=== PATIENT | female | born 1955 | race Caucasian/White ===

== ENCOUNTER → 2023-11-21 08:53 | Outpatient (CLI) | payer MEDICARE, SELFPAY ==
[2023-11-21 19:21] LABS: Add Manual Diff / Slide Review NO; Basophils Absolute Auto 100 /uL (0-100); Basophils Percent Auto 0.7 % (0-2); Eosinophils Absolute Auto 100 /uL (0-450); Hematocrit 36.9 % (36-46); Lymphocytes Absolute Auto 2300 /uL (1100-4500); Lymphocytes Percent Auto 32.8 % (25-40); Mean Corpuscular HGB Conc 32.4 % (30-36); Mean Corpuscular Volume 83.2 fL (80-100); Monocytes Absolute Auto 600 /uL (0-900); Monocytes Percent Auto 8.1 % (3-14); Neutrophils Absolute Auto 3900 /uL (1500-7000); Neutrophils Percent Auto 56.4 % (50-75); Platelet Count 270 X10^3/uL (150-400); Red Blood Cell Count 4.43 X10^6/uL (4.0-5.2); Red Cell Distribution Width 14.8 % (11.6-14.8)
[2023-11-21 23:10] LABS: TSH w/ Reflex to FT4 5.02 uIU/mL (0.47-4.68)
[2023-11-21 23:43] LABS: Free T4, Direct Thyroxine 1.21 ng/dL (0.78-2.19)
[2023-11-22 00:12] LABS: Alanine Aminotransferase 18 IU/L (<35); Albumin Globulin Ratio 1.2 (1.0-2.8); Alkaline Phosphatase 70 U/L (38-126); Aspartate Aminotransferase 25 IU/L (14-36); Bilirubin Total 0.5 mg/dL (0.2-1.3); Blood Urea Nitrogen 16 mg/dL (7-17); Calcium 9.5 mg/dL (8.4-10.2); Carbon Dioxide 31 mmol/L (22-32); Chloride 102 mmol/L (98-107); Cholesterol 188 mg/dL (140-199); Estimated Glomerular Filt Rate > 60 mL/min (>60); Globulin 3.3 g/dL (1.7-4.1); Glucose 103 mg/dL (80-110); HDL Cholesterol 61 mg/dL (40-60); HEMOLYSIS < 15 (0-50); LDL Cholesterol Calculated 109 mg/dL (<100); Potassium 4.4 mmol/L (3.4-5.1); Sodium 139 mmol/L (137-145); Total Protein 7.3 g/dL (6.3-8.2); Triglycerides 91 mg/dL (35-150)
[2023-11-22 00:29] LABS: Vitamin D 25 Hydroxy (D3) 64.6 ng/mL (30.0-100.0)
== END ==
PROVIDERS: PCP Physician Assistant Medical; Visit Provider Physician Assistant Medical
DX: Z12.11 Encounter for screening for malignant neoplasm of colon (principal); Z13.6 Encounter for screening for cardiovascular disorders; M85.80 Other specified disorders of bone density and structure, unspecified site; R56.9 Unspecified convulsions; C50.911 Malignant neoplasm of unspecified site of right female breast; R79.89 Other specified abnormal findings of blood chemistry
CPT/HCPCS: 80053; 80061; 82306; 84439; 84443; 85025

== ENCOUNTER → 2024-01-22 12:01 | Outpatient (CLI) | payer MEDICARE, SELFPAY | PROVIDERS: PCP Physician Assistant Medical; Visit Provider Physician Assistant Medical | DX: Z12.11 Encounter for screening for malignant neoplasm of colon (principal); Z13.6 Encounter for screening for cardiovascular disorders; M85.80 Other specified disorders of bone density and structure, unspecified site; R56.9 Unspecified convulsions; C50.911 Malignant neoplasm of unspecified site of right female breast; R79.89 Other specified abnormal findings of blood chemistry | CPT/HCPCS: 82274 ==

== ENCOUNTER → 2024-02-10 11:52 | Outpatient (CLI) | payer MEDICARE, SELFPAY ==
[2024-02-10 20:06] LABS: Alanine Aminotransferase 20 IU/L (<35); Albumin 3.9 g/dL (3.5-5.0); Albumin Globulin Ratio 1.2 (1.0-2.8); Alkaline Phosphatase 69 U/L (38-126); Aspartate Aminotransferase 27 IU/L (14-36); Bilirubin Total 0.4 mg/dL (0.2-1.3); Blood Urea Nitrogen 17 mg/dL (7-17); Calcium 9.3 mg/dL (8.4-10.2); Carbon Dioxide 33 mmol/L (22-32); Chloride 102 mmol/L (98-107); Estimated Glomerular Filt Rate > 60 mL/min (>60); Globulin 3.3 g/dL (1.7-4.1); Glucose 97 mg/dL (80-110); HEMOLYSIS < 15 (0-50); Potassium 4.6 mmol/L (3.4-5.1); Sodium 137 mmol/L (137-145); Total Protein 7.2 g/dL (6.3-8.2)
[2024-02-10 20:38] LABS: TSH w/ Reflex to FT4 1.82 uIU/mL (0.47-4.68)
== END ==
PROVIDERS: PCP Physician Assistant Medical; Visit Provider Physician Assistant Medical
DX: I10 Essential (primary) hypertension (principal); E03.9 Hypothyroidism, unspecified
CPT/HCPCS: 80053; 84443

== ENCOUNTER → 2024-03-02 11:48 | Outpatient (CLI) | payer MEDICARE, SELFPAY ==
--- NOTE | 2024-03-02 11:49 | DI.MG.S_ITS ---
UNILATERAL LEFT DIGITAL SCREENING MAMMOGRAM 3D/2D WITH CAD POST MASTECTOMY: 03/02/2024 CLINICAL: Routine screening. Personal history of right breast cancer. No prior exams were available for comparison. The left breast is heterogeneously dense, which may obscure small masses (category c / 51-75% glandular tissue). Current study was also evaluated with a Computer Aided Detection (CAD) system. There are benign calcifications in the left breast. There also are benign post operative findings and biopsy clip in the left breast. No significant masses, calcifications, or other findings are seen in the breast. IMPRESSION: BENIGN There is no mammographic evidence of malignancy. A 1 year screening mammogram is recommended. This exam was interpreted at Station ID: [id number]. NOTE: For mammograms, a report in lay terms will be sent to the patient. Approximately 15% of breast malignancies will not be visualized mammographically. In the management of a palpable breast mass, a negative mammogram must not discourage biopsy of a clinically suspicious lesion. Electronically Signed By: Iam gabriel/diego:03/13/2024 14:15:55 letter sent: Normal Exam ACR BI-RADS Category 2: Benign Finding(s) 3342F
== END ==
PROVIDERS: PCP Physician Assistant Medical; Referring Provider Physician Assistant Medical; Visit Provider Physician Assistant Medical
DX: Z12.31 Encounter for screening mammogram for malignant neoplasm of breast (principal); Z85.3 Personal history of malignant neoplasm of breast; R92.332 Mammographic heterogeneous density, left breast
CPT/HCPCS: 77063; 77067

== ENCOUNTER → 2024-03-02 11:50 | Outpatient (CLI) | payer MEDICARE, SELFPAY ==
--- NOTE | 2024-03-02 11:51 | DI.ECHO.S_ITS ---
[facility] : : [id number] : [place] : : [id number] : : Phone: [phone] Echocardiogram Report + + :Name: RENÉE GOMEZ Study Date: 03/02/2024 Height: 67 in : :[facility] ReadingLocation: Weight: 180 lb : : Gender: Female BSA: 1.9 m2 : :: 1955 Age: 69 yrs BP: 156/76 mmHg: :Reason For Study: CARDIAC MURMUR : :Ordering Physician: SWETHA, : :MICHEL Performed By: Ruddy Mar : :Referring: MICHEL POSADA : + + Interpretation Summary Normal sinus rhythm. Normal LV size and wall thickness; normal wall motion and LV systolic function. EF is 60-65%. Stage I diastolic dysfunction. Aortic sclerosis with mild associated stenosis. There is a pseudoraphe connecting left and non-coronary leaflets. Peak velocity is 2.3 m/sec and mean gradient is 12 mm Hg. Otherwise no significant valvular abnormalities. Normal chamber sizes. No prior study available for comparison. Procedure: A two-dimensional transthoracic echocardiogram with color flow and Doppler was performed. The study quality was technically adequate. There is no prior echocardiogram noted for this patient. The patient was in sinus rhythm with heart rates between 69-81 bpm during the exam. Left Ventricle: The left ventricle is normal in size and wall thickness. The ejection fraction is estimated to be 60-65%. Right Ventricle: The right ventricle is normal size. Right ventricular systolic function is mildly reduced. Atria: The left atrial size is normal. Right atrial size is normal. The interatrial septum grossly appears intact with no obvious evidence for an atrial septal defect. Mitral Valve: The mitral valve is normal in structure and function. There is no mitral valve stenosis. There is trace mitral regurgitation. Aortic Valve: The aortic valve is trileaflet. The aortic valve is mildly calcified. There is mild aortic stenosis. The peak aortic velocity is 2.28 m/sec. The aortic valve mean gradient is 12.2 mmHg. There is trace aortic regurgitation. Tricuspid Valve: The tricuspid valve is normal. There is no tricuspid stenosis. There is mild tricuspid regurgitation. The right ventricular systolic pressure is estimated to be at least 31.6 mmHg based on an estimated right atrial pressure of 8 mm Hg. Pulmonic Valve: The pulmonic valve is not well visualized. There is no pulmonic valvular stenosis. There is a trace or physiologic amount of pulmonic regurgitation. Great Vessels: The aortic root is normal size. The dimensions of the ascending aorta are normal. The IVC is dilated (diameter is greater than 2.1 cm) yet it collapses greater than 50% with a sniff. This suggests a right atrial pressure of 8 mm Hg. Pericardium/ Pleura There is no pericardial effusion. There is no pleural effusion. MMode/2D Measurements & Calculations LVIDd: 5.0 cm LVOT diam: 1.8 cm LVIDs: 3.4 cm Ao root diam: 3.1 cm FS: 33.1 % asc Aorta Diam: 2.9 cm IVSd: 0.97 cm LVPWd: 0.87 cm LV stafford. diameter/BSA (cm/m^2): 2.6 LV sys. diameter/BSA (cm/m^2): 1.7 LA A2 area: 18.3 cm2 RA long axis: 4.4 cm LA A4 area: 16.8 cm2 RA area: 12.6 cm2 LA length (vol): 4.9 cm RA vol: 30.5 ml LA vol: 53.3 ml RA : 15.8 ml/m2 LA vol index: 27.5 ml/m2 IVC diam: 2.2 cm RVD1 (basal): 3.2 cm RVD2 (mid): 2.6 cm TAPSE: 1.6 cm Doppler Measurements & Calculations Ao V2 max: 228.4 cm/sec LVOT [place]: 134.7 cm/sec Ao V2 mean: 165.4 cm/sec LV V1 max P.3 mmHg Ao max P.9 mmHg LV V1 VTI: 32.0 cm Ao mean P.2 mmHg RICHARD(I,D): 1.7 cm2 Ao V2 VTI: 51.0 cm RICHARD(V,D): 1.5 cm2 sev ratio: 0.63 RICHARD indexed to BSA (cm^2/m^2): 0.85 MV E max lake: 66.1 cm/sec TR max lake: 242.7 cm/sec MV A max lake: 105.2 cm/sec TR max P.6 mmHg MV E/A: 0.63 PA V2 max: 122.2 cm/sec Med [place]: 4.8 cm/sec PA V2 mean: 86.6 cm/sec E/E' med: 13.8 PA mean P.3 mmHg Lat [place]: 8.2 cm/sec PA pr(Accel): 36.2 mmHg E/E' lat: 8.1 E/e' average: 10.9 MV dec time: 0.32 sec SV(LVOT): 84.2 ml Electronically signed by: Ingrid Lozano M.D. on Reading Physician:03/03/2024 07:50 AM
== END ==
PROVIDERS: PCP Physician Assistant Medical; Referring Provider Internal Medicine Cardiovascular Disease; Visit Provider Internal Medicine Cardiovascular Disease
DX: I08.2 Rheumatic disorders of both aortic and tricuspid valves (principal); R01.1 Cardiac murmur, unspecified
CPT/HCPCS: 93306

== ENCOUNTER → 2024-06-29 12:53 | Outpatient (CLI) | payer MEDICARE, SELFPAY ==
--- NOTE | 2024-06-29 12:57 | DI.RAD.S_ITS ---
PROCEDURE: XR DEXA AXIAL SKELETON INDICATIONS: Other specified disorders of bone density and structure, uns COMPARISON: None. FINDINGS: Lumbar Spine: Bone mineral density 1.007 g/cm2, T score -0 7. Left Hip: Bone mineral density 0.875 g/cm2, T score -0.5. Left Femoral Neck: Bone mineral density 0.728 g/cm2, T score -1.1. Right Hip: Bone mineral density 0.873 g/cm2, T score -0.6,. Right Femoral Neck: Bone mineral density 0.751 g/cm2, T score -0.9 Fracture Risk Calculation (when applicable): 10-year fracture risk of a major osteoporotic fracture 8.8 percent and of a hip fracture 0.9 percent. (T score greater or equal to -1.0 to: NORMAL) (T score from -1.1 to -2.4: OSTEOPENIA) (T score less than or equal to -2.5: OSTEOPOROSIS) IMPRESSION: Minimal osteopenia in the left femoral neck. Follow-up guidelines as follows: Osteoporosis: Consider a repeat DEXA and Vertebral Fracture Assessment (VFA) exam in 2 years or sooner if medically necessary, to reassess this patient's status. Osteopenia: Consider a repeat DEXA in 2-3 years to reassess this patient's status, or if there is a new clinical indication. Normal: Consider a repeat DEXA in 5 years or sooner, or if there is a new clinical indication. All treatment decisions require clinical judgment and consideration of individual patient factors, including patient preferences, comorbidities, previous drug use, risk factors not captured in the FRAX model (e.g., frailty, falls, vitamin D deficiency, increased bone turnover, interval significant decline in bone density ) and possible under- or over-estimation of fracture risk by FRAX. In addition, the NOF Guide recommends that FDA-approved medical therapies be considered in postmenopausal women and men age >= 50 years with a: * Hip or vertebral (clinical or morphometric) fracture * T-score of <=-2.5 at the spine or hip * Ten-year fracture probability by FRAX of >= 3% for hip fracture or >=20% for major osteoporotic fracture. People with diagnosed cases of osteoporosis or at high risk for fracture should have regular bone mineral density tests. For patients eligible for Medicare, routine testing is allowed once every 2 years. The testing frequency can be increased to one year for patients who have rapidly progressing disease, those who are receiving or discontinuing medical therapy to restore bone mass, or have additional risk factors. Dictated by: Leticia Cameron M.D. on 06/29/2024 at 17:39 Approved by: Leticia Cameron M.D. on 06/29/2024 at 17:40
== END ==
PROVIDERS: PCP Physician Assistant Medical; Referring Provider Physician Assistant Medical; Visit Provider Physician Assistant Medical
DX: M85.852 Other specified disorders of bone density and structure, left thigh (principal)
CPT/HCPCS: 77080

== ENCOUNTER → 2024-07-28 09:17 | Outpatient (CLI) | payer MEDICARE, SELFPAY ==
[2024-07-28 19:36] LABS: Hematocrit 38.5 % (36-46); Hemoglobin 12.7 g/dL (12.0-16.0); Mean Corpuscular HGB Conc 33.1 % (30-36); Mean Corpuscular Hemoglobin 27.8 PG (26-34); Mean Corpuscular Volume 83.8 fL (80-100); Platelet Count 252 X10^3/uL (150-400); Red Blood Cell Count 4.59 X10^6/uL (4.0-5.2); Red Cell Distribution Width 14.3 % (11.6-14.8); White Blood Cell Count 6.2 X10^3/uL (4.5-11.0)
[2024-07-28 20:06] LABS: Alanine Aminotransferase 27 IU/L (<35); Albumin 4.2 g/dL (3.5-5.0); Albumin Globulin Ratio 1.2 (1.0-2.8); Alkaline Phosphatase 77 U/L (38-126); Aspartate Aminotransferase 31 IU/L (14-36); BUN Creatinine Ratio 21.1 (6-22); Bilirubin Total 0.5 mg/dL (0.2-1.3); Blood Urea Nitrogen 15 mg/dL (7-17); Calcium 9.6 mg/dL (8.4-10.2); Carbon Dioxide 32 mmol/L (22-32); Chloride 99 mmol/L (98-107); Cholesterol 207 mg/dL (140-199); Estimated Glomerular Filt Rate > 60 mL/min (>60); Globulin 3.4 g/dL (1.7-4.1); Glucose 104 mg/dL (80-110); HDL Cholesterol 68 mg/dL (40-60); HEMOLYSIS < 15 (0-50); LDL Cholesterol Calculated 111 mg/dL (<100); Potassium 4.3 mmol/L (3.4-5.1); Sodium 137 mmol/L (137-145); Total Protein 7.6 g/dL (6.3-8.2); Triglycerides 138 mg/dL (35-150)
[2024-07-28 20:17] LABS: Vitamin D 25 Hydroxy (D3) 44.8 ng/mL (30.0-100.0)
[2024-07-28 21:11] LABS: Free T4, Direct Thyroxine 1.24 ng/dL (0.78-2.19)
== END ==
PROVIDERS: PCP Physician Assistant Medical; Referring Provider Physician Assistant Medical; Visit Provider Physician Assistant Medical
DX: L03.211 Cellulitis of face (principal); I10 Essential (primary) hypertension; E03.9 Hypothyroidism, unspecified; R79.89 Other specified abnormal findings of blood chemistry
CPT/HCPCS: 80053; 80061; 82306; 84439; 84443; 85027

== ENCOUNTER → 2024-09-25 12:09 | Outpatient (CLI) | payer MEDICARE, SELFPAY ==
--- NOTE | 2024-09-25 12:11 | DI.MRI.S_ITS ---
BREAST MRI OF BOTH BREASTS: 09/25/2024 CLINICAL: Personal history of right breast cancer. PROCEDURE: MR BREAST BI WO/W CON INDICATIONS: screening TECHNIQUE: The patient was placed prone in a dedicated breast imaging coil. Precontrast axial STIR and 3D FLASH without fat saturation sequences were obtained. Both before and after bolus injection of contrast, sequential 1-minute axial 3D FLASH with fat saturation sequences for 3 time points, with subtraction images and maximum intensity projections (MIP's) generated. Delayed sagittal FLASH images with fat saturation were also obtained. Computer-aided detection, including computer algorithm analysis of MRI image data for lesion detection and characterization, pharmacokinetic analysis, with further physician review for interpretation, was performed. COMPARISON: Left breast screening mammogram 03/02/2024. FINDINGS: Image quality: Diagnostic. There is scattered amount of fibroglandular tissue in the left breast. There is mild background parenchymal enhancement. Right breast: There are postsurgical changes from right breast mastectomy with implant reconstruction. There is no suspicious enhancement or lymphadenopathy. Left breast: There is no suspicious enhancement or lymphadenopathy. IMPRESSION: BENIGN Right breast status post mastectomy with implant reconstruction. No MRI evidence of malignancy in the right breast. Recommend clinical follow-up. No MRI evidence of malignancy in the left breast. Recommend continued routine annual screening. This exam was interpreted at Station ID: [id number]. Electronically Signed By: Brittany Belol M.D., Ph.D. eb/:10/01/2024 00:46:28 letter sent: Normal Exam ACR BI-RADS Category 2: Benign
== END ==
LOC: MRI 12:10
PROVIDERS: PCP Physician Assistant Medical; Referring Provider Physician Assistant Medical; Visit Provider Physician Assistant Medical
DX: C50.911 Malignant neoplasm of unspecified site of right female breast (principal); Z98.82 Breast implant status; Z90.11 Acquired absence of right breast and nipple
CPT/HCPCS: 77049; A9579

== ENCOUNTER → 2025-01-05 09:04 | Outpatient (CLI) | payer MEDICARE, SELFPAY ==
[2025-01-05 19:06] LABS: Hematocrit 36.8 % (36-46); Hemoglobin 12.1 g/dL (12.0-16.0); Mean Corpuscular HGB Conc 32.9 % (30-36); Mean Corpuscular Hemoglobin 27.4 PG (26-34); Mean Corpuscular Volume 83.3 fL (80-100); Platelet Count 233 X10^3/uL (150-400); Red Blood Cell Count 4.42 X10^6/uL (4.0-5.2); Red Cell Distribution Width 14.9 % (11.6-14.8); White Blood Cell Count 6.4 X10^3/uL (4.5-11.0)
[2025-01-05 19:15] LABS: Alanine Aminotransferase 26 IU/L (<35); Albumin 4.2 g/dL (3.5-5.0); Albumin Globulin Ratio 1.4 (1.0-2.8); Alkaline Phosphatase 76 U/L (38-126); Aspartate Aminotransferase 33 IU/L (14-36); BUN Creatinine Ratio 19.7 (6-22); Bilirubin Total 0.5 mg/dL (0.2-1.3); Blood Urea Nitrogen 14 mg/dL (7-17); Calcium 9.3 mg/dL (8.4-10.2); Carbon Dioxide 30 mmol/L (22-32); Chloride 100 mmol/L (98-107); Cholesterol 180 mg/dL (140-199); Estimated Glomerular Filt Rate > 60 mL/min (>60); Globulin 2.9 g/dL (1.7-4.1); Glucose 101 mg/dL (70-99); HDL Cholesterol 59 mg/dL (40-60); HEMOLYSIS < 15 (0-50); LDL Cholesterol Calculated 104 mg/dL (<100); Potassium 4.6 mmol/L (3.4-5.1); Sodium 138 mmol/L (137-145); Total Protein 7.1 g/dL (6.3-8.2); Triglycerides 85 mg/dL (35-150)
== END ==
PROVIDERS: PCP Physician Assistant Medical; Visit Provider Physician Assistant Medical
DX: E78.00 Pure hypercholesterolemia, unspecified (principal); I10 Essential (primary) hypertension; E03.9 Hypothyroidism, unspecified
CPT/HCPCS: 80053; 80061; 85027

== ENCOUNTER → 2025-01-28 11:54 | Outpatient (CLI) | payer MEDICARE, SELFPAY ==
[2025-01-28 19:29] LABS: Free T3, Triiodothyronine Free 4.04 pg/mL (2.77-5.27); Hemoglobin A1C% w Est Avg Glu 5.6 % (4.0-6.0)
== END ==
PROVIDERS: PCP Physician Assistant Medical; Visit Provider Physician Assistant Medical
DX: E03.9 Hypothyroidism, unspecified (principal); R73.9 Hyperglycemia, unspecified
CPT/HCPCS: 83036; 84443; 84481

== ENCOUNTER → 2025-06-29 08:52 | Outpatient (CLI) | payer MEDICARE, SELFPAY ==
[2025-06-29 19:00] LABS: Add Manual Diff / Slide Review NO; Hematocrit 36.9 % (36-46); Hemoglobin 12.3 g/dL (12.0-16.0); Lymphocytes Absolute Auto 1900 /uL (1100-4500); Mean Corpuscular HGB Conc 33.4 % (30-36); Mean Corpuscular Hemoglobin 27.9 PG (26-34); Mean Corpuscular Volume 83.6 fL (80-100); Platelet Count 211 X10^3/uL (150-400)
[2025-06-29 19:06] LABS: Alanine Aminotransferase 25 IU/L (<35); Albumin 4.1 g/dL (3.5-5.0); Albumin Globulin Ratio 1.4 (1.0-2.8); Alkaline Phosphatase 76 U/L (38-126); Blood Urea Nitrogen 17 mg/dL (7-17); Calcium 9.3 mg/dL (8.4-10.2); Carbon Dioxide 29 mmol/L (22-32); Chloride 99 mmol/L (98-107); Estimated Glomerular Filt Rate > 60 mL/min (>60); Globulin 3.0 g/dL (1.7-4.1); Glucose 104 mg/dL (70-99); HEMOLYSIS 16 (0-50); Magnesium 2.0 mg/dL (1.6-2.3); Potassium 4.4 mmol/L (3.4-5.1); Sodium 139 mmol/L (137-145); Total Protein 7.1 g/dL (6.3-8.2)
[2025-06-29 19:18] LABS: Hemoglobin A1C% w Est Avg Glu 5.9 % (4.0-6.0)
[2025-06-29 19:25] LABS: Vitamin D 25 Hydroxy (D3) 40.5 ng/mL (30.0-100.0)
[2025-06-29 19:37] LABS: TSH w/ Reflex to FT4 3.62 uIU/mL (0.47-4.68)
== END ==
PROVIDERS: PCP Physician Assistant Medical; Visit Provider Physician Assistant Medical
DX: Z13.6 Encounter for screening for cardiovascular disorders (principal); R63.5 Abnormal weight gain; R73.9 Hyperglycemia, unspecified; E78.00 Pure hypercholesterolemia, unspecified; I10 Essential (primary) hypertension; E03.9 Hypothyroidism, unspecified; R79.89 Other specified abnormal findings of blood chemistry; R56.9 Unspecified convulsions
CPT/HCPCS: 80053; 82306; 83036; 83735; 84443; 85025

== ENCOUNTER → 2025-07-09 12:56 | Outpatient (CLI) | payer MEDICARE, SELFPAY ==
--- NOTE | 2025-07-09 12:57 | DI.MG.S_ITS ---
MM screening mammo unilat LT: 07/09/2025. BI-RADS: 2 CLINICAL: 70-year old female for left screening mammogram. No Tyrer-Cuzick risk score calculation due to the patient's personal history of breast cancer. Patient reports a history of right breast carcinoma diagnosed at age 57. Status-post right mastectomy with hormonal therapy. No first-degree family history of breast cancer. The patient has a right breast implant. The patient had a prior left breast biopsy. The patient is status-post reduction mammoplasty. PRIOR EXAMS 09/25/2024, 03/02/2024. MAMMOGRAPHY TECHNIQUE: 2D and 3D (tomosynthesis) digital mammographic views obtained, with additional images as needed for full coverage. Current study was also evaluated with a Computer Aided Detection (CAD) system. DENSITY Left: C. The breast is heterogeneously dense, which may obscure small masses. MAMMOGRAPHY FINDINGS Left: Biopsy marker present on the left. Benign-appearing post-surgical changes noted on the left. There are no suspicious masses, calcifications, or other findings in the breast. IMPRESSION: Left * No evidence of malignancy with benign findings. RECOMMENDATIONS Left * Annual screening mammography. OVERALL ASSESSMENT CATEGORY BI-RADS-2: Benign. The [employer] recommends annual screening mammography beginning at age 40 for women with average risk of breast cancer. ELECTRONICALLY SIGNED: Nikky Maher M.D. on 07/10/2025 at 11:55:26 PM PT Interpreting Station ID: [id number]
== END ==
LOC: MAMMO 12:57
PROVIDERS: PCP Physician Assistant Medical; Referring Provider Physician Assistant Medical; Visit Provider Physician Assistant Medical
DX: Z12.31 Encounter for screening mammogram for malignant neoplasm of breast (principal); R92.332 Mammographic heterogeneous density, left breast; Z90.11 Acquired absence of right breast and nipple; Z98.82 Breast implant status
CPT/HCPCS: 77063; 77067